=== PATIENT | male | born 1975 | race African-American/Black ===

== ENCOUNTER 2017-11-13 13:29 | Emergency (ER) | payer SELFPAY, OTHER, MEDICAID ==
[2017-11-13] MEDS: IBUPROFEN 800 MG TAB PO (15:35)
[2017-11-13] MEDS: predniSONE 20 MG TAB PO (15:35)
== END 2017-11-13 17:19 | disposition home or self-care (01) ==
LOC: FTE 13:29
DX: M54.2 Cervicalgia (principal)
CPT/HCPCS: 72125; 99284-25